=== PATIENT | male | born 2000 | race Caucasian/White ===

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

== ENCOUNTER 2021-03-26 21:15 | Emergency (ER) | payer OTHER ==
[~2021-03-26] VITALS: Ht 182.9 cm; Wt 63.5 kg
[~2021-03-26 21:15] MED LIST: KEFLEX500 M1 PO
[2021-03-26 22:16] LABS: ABSOLUTE BASOPHILS 0.1 thou/uL (0.0-0.2); ABSOLUTE EOSINOPHILS 0.2 thou/uL (0.0-0.7); ABSOLUTE LYMPHOCYTES 1.7 thou/uL (0.8-5.3); ABSOLUTE MONOCYTES 1.6 thou/uL (0.0-1.2); ABSOLUTE NEUTROPHILS 7.3 thou/uL (1.6-8.1); BASOPHILS 0.5 %; EOSINOPHILS 1.5 %; HEMATOCRIT 43.3 % (42.0-52.0); HEMOGLOBIN 15.2 gm/dL (14.0-18.0); LYMPHOCYTES 15.5 %; MCH 30.8 pg (26.0-34.0); MCV 87.9 fL (80.0-100.0); MONOCYTES 14.5 %; MPV 8.1 fl. (7.2-11.1); NUCLEATED RBCS 0 /100WBC; PLATELET COUNT* 202 thou/uL (150-400); RBC 4.93 mil/uL (4.50-6.00); RDW-CV 13.4 % (10.5-14.5); WBC 10.8 thou/uL (4.0-11.0)
[2021-03-26 22:25] LABS: CREATININE 0.9 mg/dL (0.6-1.3); POTASSIUM 3.8 mmol/L (3.5-5.1)
[2021-03-26] MEDS ORDERED: METRONIDAZOLE500 M4 PO (22:47)
[2021-03-26] MEDS ORDERED: IBUPROFEN 800800 MG PO (23:07)
[2021-03-26] MEDS ORDERED: CEFUROXIME500 MG PO (23:07)
[2021-03-26] MEDS ORDERED: ZOFRAN ODT4 MG PO (23:07)
[2021-03-26] MEDS ORDERED: ENDOCET 7.5-321 EACH PO (23:07)
[2021-03-26 23:18] VITALS: BP 132/87
== END 2021-03-26 23:18 | disposition home or self-care (01) ==
LOC: M.ERS 21:15
PROVIDERS: Emergency Medicine
DX: K04.7 Periapical abscess without sinus (principal); Z88.0 Allergy status to penicillin; Z79.899 Other long term (current) drug therapy